=== PATIENT | male | born 1965 | race African-American/Black ===

== ENCOUNTER 2022-01-03 16:14 | Emergency (ER) | payer MEDICAID, OTHER ==
[~2022-01-03] VITALS: Ht 185.4 cm; Wt 72.6 kg
[2022-01-03] MEDS ORDERED: HYDROCODONE/APAP 10-325 MG TABLET PO ONE (17:15)
[2022-01-03] MEDS ORDERED: IBUPROFEN 800 MG TABLET PO ONE (17:15)
[2022-01-03] MEDS ORDERED: CYCLOBENZAPRINE HCL 10 MG TABLET PO ONE (17:15)
[2022-01-03] MEDS ORDERED: CYCLOBENZAPRINE HCL 10 MG TABLET ONE (17:21)
[2022-01-03] MEDS ORDERED: IBUPROFEN 800 MG TABLET ONE (17:22)
[2022-01-03] MEDS ORDERED: HYDROCODONE/APAP 10-325 MG TABLET ONE (17:23)
--- NOTE | 2022-01-03 17:50 | NUR ---
Pt. arrived with cc of low back pain. Described as aching and rated 8/10. Presented with facial grimacing, guarding, withdrawal to touch. Seen by MD. Ordered rx administered. V/s are wnl.
[2022-01-03] MEDS ORDERED: IBUP800T54 PO (18:06)
[2022-01-03] MEDS ORDERED: HYDR-4209 PO (18:06)
[2022-01-03] MEDS ORDERED: CYCL10TA9 PO (18:06)
--- NOTE | 2022-01-03 18:15 | NUR ---
Upon reassessment, patient rated pain 2/10. Tingling sensation was gone. Physical mobility restored. Pt. d/c to home in stable condition. No distress noted. D/c instructions were given, pt and sp verbalized understanding.
[2022-01-03 18:22] VITALS: BP 135/88
--- NOTE | 2022-01-03 18:23 | NUR ---
Note haleyone in EDM - 01/03/22 at 1831 by TRAE Pt. arrived with cc of low back pain. Described as aching and rated 8/10. Presented with facial grimacing, guarding, withdrawal to touch. Seen by MD. Ordered rx administered. V/s are wnl.
== END 2022-01-03 18:20 | disposition home or self-care (01) ==
LOC: ER 16:16
DX: M54.50 Low back pain, unspecified (principal); R03.0 Elevated blood-pressure reading, without diagnosis of hypertension
CPT/HCPCS: A4663